=== PATIENT | female | born 1960 | race Caucasian/White ===

== ENCOUNTER 2018-06-26 15:38 | Emergency (ER) | payer SELFPAY ==
[2018-06-26 17:37] LABS: ABS Basophils 0 10^3/ul (0-0.2); ABS Eosinophils 0.1 10^3/ul (0-0.6); ABS Lymphocytes 1.8 10^3/ul (1.0-4.8); ABS Monocytes 0.4 10^3/ul (0-0.8); ABS Neutrophils 3.5 10^3/ul (1.5-7.7); ABS Nucleated RBC 0 10^3/ul; Eosinophil % 1.5 %; Hematocrit 46 % (35-47); Hemoglobin 15.5 g/dl (12.0-16.0); Lymphocyte % 31.1 %; Mean Corpuscular HGB Conc 34 g/dl (31-36); Mean Corpuscular Hemoglobin 31 pg (27-31); Mean Corpuscular Volume 92 fL (80-97); Mean Platelet Volume 8.8 fL (7.4-10.4); Nucleated Red Blood Cells % 0.1; Platelet Count 232 10^3/ul (150-450); Red Blood Count 4.95 10^6/ul (4.00-5.40); Red Cell Distribution Width 13 % (10.5-15); White Blood Count 5.9 10^3/ul (3.5-10.8)
[2018-06-26 17:54] LABS: INR 0.86 (0.77-1.02)
[2018-06-26 17:56] LABS: EGFR Non-African American 78.7 (>60)
[2018-06-26 18:06] VITALS: BP 136/83
== END 2018-06-26 18:44 | disposition left against medical advice (07) ==
LOC: ED 15:38
DX: R07.9 Chest pain, unspecified (principal); Z53.21 Procedure and treatment not carried out due to patient leaving prior to being seen by health care provider
CPT/HCPCS: 36415; 80053; 83690; 84443; 84484; 85025; 85610; 86140; 93005; 99281

== ENCOUNTER 2019-10-23 13:25 | Emergency (ER) | payer MEDICAID, OTHER ==
[2019-10-23] MEDS ORDERED: methylPREDNISolone 125 MG* 2 ML VIAL IM ONE (13:38)
[2019-10-23] MEDS ORDERED: Lidocaine 2% VISCOUS* 15 ML UDC PO ONE (13:40)
[2019-10-23] MEDS ORDERED: Ibuprofen ADULT LIQ* 600 MG/30 ML UDC PO ONE (13:40)
--- NOTE | 2019-10-23 13:45 | ED ---
Throat Pain/Nasal Congestion - HPI Summary HPI Summary: 51-year-old female PUI for COVID-19 presents to the emergency department today complaining of 2 days of 10 out of 10 for throat with no associated fever. Patient denies trismus, drooling, trouble breathing but does state it is difficult to maintain by mouth intake due to pain. Patient was seen at [facility] yesterday and tested negative for streptococcal pharyngitis, influenza and has COVID-19 testing pending. Patient states she's been taking ibuprofen for pain. Patient is otherwise well and denies fever, chest pain, abdominal pain, pending urination, nausea vomiting diarrhea, cough, nasal congestion. - History of Current Complaint Time Seen by Provider: 10/23/19 13:27 Hx Obtained From: Patient Onset/Duration: Gradual Onset Severity: Severe Associated Signs And Symptoms: Positive: Dysphagia. Negative: Drooling, Wheezing, Hoarseness Cough: None - Allergies/Home Medications Allergies/Adverse Reactions: Allergies Allergy/AdvReac Type Severity Reaction Status Date / Time azithromycin Allergy Hives Verified 06/26/18 15:53 [From Zithromax Z-Benjamin] Penicillins Allergy Hives Verified 06/26/18 15:53 Home Medications: Home Medications Amlodipine 2.5 mg TAB (NF) 2.5 mg PO DAILY 10/23/19 [History Confirmed 10/23/19] Aspirin EC TAB* [Ecotrin EC Low Dose 81 MG*] 81 mg PO DAILY 10/23/19 [History Confirmed 10/23/19] Atorvastatin* [Lipitor*] 10 mg PO DAILY 10/23/19 [History Confirmed 10/23/19] DULoxetine DR CAP* [Cymbalta CAP*] 30 mg PO DAILY 10/23/19 [History Confirmed ] DULoxetine DR CAP* [Cymbalta CAP*] 60 mg PO DAILY 10/23/19 [History Confirmed ] QUEtiapine TAB* [Seroquel 100 MG *] 200 mg PO BEDTIME 10/23/19 [History Confirmed 10/23/19] predniSONE 20 mg TAB [Deltasone 20 MG TAB*] 40 mg PO DAILY #8 tab 10/23/19 [Rx] Review of Systems Constitutional: Negative Eyes: Negative Positive: Sore Throat. Negative: Dental Pain, Nasal Discharge Cardiovascular: Negative Respiratory: Negative Gastrointestinal: Negative Genitourinary: Negative Musculoskeletal: Negative Skin: Negative Neurological/Mental Status: Negative Psychological: Normal All Other Systems Reviewed And Are Negative: Yes Physical Exam - Summary Physical Exam Summary: Patient is in no acute distress with no stridor, wheezing, trismus. There is significant erythema with tonsillar exudate/ swelling in the posterior pharynx. Uvula midline. No evidence of peritonsillar abscess. No muffled voice. Patient's airway is not compromised. Triage Information Reviewed: Yes Vital Signs Reviewed: Yes Appearance: Positive: Well-Appearing, No Pain Distress, Well-Nourished Skin: Positive: Warm, Skin Color Reflects Adequate Perfusion Eyes: Positive: EOMI, RYLEE ENT: Positive: Hearing grossly normal Respiratory/Lung Sounds: Positive: Clear to Auscultation, Breath Sounds Present Cardiovascular: Positive: RRR, S1, S2 Abdomen Description: Positive: Nontender, Soft Bowel Sounds: Positive: Present Musculoskeletal: Positive: Strength/ROM Intact Neurological: Positive: Sensory/Motor Intact, Alert, Oriented to Person Place, Time, Normal Gait, Facial Symmetry, Speech Normal Psychiatric: Positive: Normal, Affect/Mood Appropriate AVPU Assessment: Alert Procedures - Sedation Patient Received Moderate/Deep Sedation with Procedure: No EENT Course/Dx - Course Course Of Treatment: Patient was evaluated in the emergency department today for sore throat. Patient is a PUI for COVID 19. Vitals noted and stable. Patient afebrile. Physical exam is consistent with acute pharyngitis. Airway was patent and there is no drooling, trismus, evidence of peritonsillar abscess. Streptococcal pharyngitis serology negative. Due to tonsillar edema patient was given steroids in the emergency Department as well as ibuprofen for pain. Patient was given prescription for prednisone to take 40 mg for 4 days for tonsillar swelling. Patient is to continue self quarantined until she is contacted by the health department with results of her Covid 19 screening. Patient discharged with outpatient follow-up. Patient was able to tolerate by mouth intake of fluids at the time of discharge. - Differential Diagnoses Differential Diagnoses: Cellulitis, Abundio's Angina, Pharyngitis, Tonsilitis, URI/Bronchitis - Diagnoses Provider Diagnoses: Acute pharyngitis Discharge ED - Sign-Out/Discharge Documenting (check all that apply): Patient Departure - Discharge Plan Condition: Stable Disposition: HOME Prescriptions: predniSONE 20 mg TAB [Deltasone 20 MG TAB*] 40 mg PO DAILY #8 tab Patient Education Materials: Pharyngitis (ED) Referrals: No Primary Care Phys,NOPCP [Medical Doctor] - 3 Days Additional Instructions: Please continue to take ibuprofen 600 mg every 6 hours as needed for pain and swelling. Please take 40 mg prednisone daily for 4 days. Please follow up with your primary care provider in 3-4 days for further evaluation and management of your symptoms. Please continue to quarantine yourself until the results of your COVID testing return. Please return to the emergency department immediately should you develop any new or worsening symptoms. - Billing Disposition and Condition Condition: STABLE Disposition: Home
[2019-10-23 14:22] LABS: Rapid Strep Molecular Negative (Negative)
--- OUTSIDE RECORDS SUMMARY | 2019-10-23 14:32 | XMS REPORT | Summary of Care ---
:1960 Author Organization [facility] Address [address] [place] [address] Care Team Providers Name Role Phone Jessica Dumas MD Primary Care Provider Reason for Visit Reason Comments Fever Sore Throat Encounter Details Date Type Department Care Team Description 10/22/2019 Office Visit [place] Shereen Benoit, [employer] [place] Fever, unspecified Practice [address] fever cause (Primary [address] [place] [address] Dx) [place] [address] [phone] Allergies Active Allergy Reactions Severity Noted Date Comments Penicillins Hives 07/31/2018 Azithromycin Dihydrate Hives 07/31/2018 documented as of this encounter (statuses as of 10/22/2019) Medications Medication Sig Dispensed Refills Start Date End Date Status Multiple Take by mouth. 0 Active Vitamins-Minerals (ICAPS AREDS 2 PO) duloxetine (CYMBALTA) 30 Take 30 mg by 0 Active MG Oral CAPSULE ENTERIC mouth DAILY. COATED PARTICLES duloxetine (CYMBALTA) 60 Take 60 mg by 0 Active MG Oral CAPSULE ENTERIC mouth DAILY. COATED PARTICLES quetiapine (SEROQUEL) Take 200 mg by 0 Active 100 MG Oral Tab mouth EVERY BEDTIME. amLodipine (NORVASC) 2.5 Take 1 Tab by 30 Tab 5 09/19/2019 Active MG Oral TabIndications: mouth DAILY. Raynaud's phenomenon without gangrene aspirin (ECOTRIN) 81 MG Take 1 Tab by 30 Tab 5 09/19/2019 Active Oral Tab EC mouth DAILY. atorvastatin (LIPITOR) Take 1 Tab by 30 Tab 5 09/19/2019 Active 10 MG Oral Tab mouth DAILY. documented as of this encounter (statuses as of 10/22/2019) Active Problems Problem Noted Date Acute pharyngitis 09/10/2019 Benign paroxysmal positional vertigo 09/10/2019 Cough 09/10/2019 Disorder of eye 09/10/2019 Essential hypertension 09/10/2019 Other chest pain 09/10/2019 Low back pain 09/10/2019 Meralgia paresthetica 09/10/2019 Obesity 09/10/2019 Old myocardial infarction 09/10/2019 Palpitations 09/10/2019 Postnasal drip 09/10/2019 Premenopausal menorrhagia 09/10/2019 Shortness of breath 09/10/2019 Abnormal stress echo 09/29/2018 S/P gastric bypass Overview: age 54, lost 90lb Antiphospholipid syndrome documented as of this encounter (statuses as of 10/22/2019) Resolved Problems Problem Noted Date Resolved Date Acute upper respiratory infection 09/10/2019 09/10/2019 Contact dermatitis and other eczema 09/10/2019 09/10/2019 Encounter for routine gynecological examination 09/10/2019 09/10/2019 Routine general medical examination at a [facility] 09/10/2019 09/10/2019 facility Need for prophylactic vaccination and inoculation against 06/25/20132019 influenza documented as of this encounter (statuses as of 10/22/2019) Immunizations Name Administration Dates Next Due Influenza (IM) Preservative Free 05/18/2018 Influenza Vaccine Split 06/25/2013 Influenza Virus Vaccine Pres Free 6-35 Months 07/13/2011 documented as of this encounter Social History Tobacco Use Types Packs/Day Years Used Date Never Smoker Smokeless Tobacco: Never Used Alcohol Use Drinks/Week oz/Week Comments Yes occasionally Alcohol Habits Answer Date Recorded How often do you have a drink containing alcohol? Monthly or less 07/31/2018 How many drinks containing alcohol do you have on a 1 or 2 07/31/2018 typical day when you are drinking? How often do you have six or more drinks on one Not asked occasion? Physical Activity Answer Date Recorded On average, how many days per week do you engage in moderate 0 days 2018 to strenuous exercise (like walking fast, running, jogging, dancing, swimming, biking, or other activities that cause a light or heavy sweat)? On average, how many minutes do you engage in exercise at Not asked this level? Stress Answer Date Recorded Do you feel stress - tense, restless, nervous, or anxious, or Very much 07/31 unable to sleep at night because your mind is troubled all the time - these days? Sex Assigned at Date Recorded Not on file documented as of this encounter Last Filed Vital Signs Vital Sign Reading Time Taken Comments Blood Pressure 122/78 10/22/2019 1:58 PM EDT Pulse 81 10/22/2019 1:58 PM EDT Temperature 38.1 10/22/2019 1:58 PM C (100.6 EDT F) Respiratory Rate - - Oxygen Saturation 98% 10/22/2019 1:58 PM EDT Inhaled Oxygen Concentration - - Weight - - Height - - Body Mass Index - - documented in this encounter Progress Notes Shereen Holman FNP-C - 10/22/2019 1:20 PM EDT PATIENT: Lea Hunt : 1960 DATE OF SERVICE: 10/22/2019 CHIEF COMPLAINT: Chief Complaint Patient presents with ? Fever ? Sore Throat Subjective HISTORY OF PRESENT ILLNESS: Lea Hunt is a 59-y.o. female. Started feeling sick yesterday fever and chills sore throat Slight nasal congestion and cough feels pain in knees and ankles Muscle pain in legs Headaches Hasn't taken any medication for symptoms Past Medical History: Diagnosis Date ? Antiphospholipid syndrome (HCC) ? Atrophy, cortical (HCC) ? Breath shortness ? Clotting disorder (HCC) ? Essential (primary) hypertension ? GERD (gastroesophageal reflux disease) ? Heart attack (HCC) age 41, had cath, no stents. tx for HTN, felt due to a clot ? History of breast surgery right breast benign biopsy ? Pneumonia ? Postmenopausal ? S/P gastric bypass age 54, lost 90lb ? Viral hepatitis years ago, hepatits C tx with ribaviron and intererone Family History Problem Relation Age of Onset ? Heart Mother ? Dementia Mother ? Heart Father ? GI Father from C Difficile ? Alcohol/Drug Daughter heroin ? Heart Sister CHF ? Heart Brother amalyoid heart, transplant ? Heart Sister afib ? Heart Brother chf ? No Known Problems Sister ? Alcohol/Drug Daughter heroin ? Diabetes No family history ? Cancer No family history Current Outpatient Medications Medication Sig ? amLodipine (NORVASC) 2.5 MG Oral Tab Take 1 Tab by mouth DAILY. ? aspirin (ECOTRIN) 81 MG Oral Tab EC Take 1 Tab by mouth DAILY. ? atorvastatin (LIPITOR) 10 MG Oral Tab Take 1 Tab by mouth DAILY. ? duloxetine (CYMBALTA) 30 MG Oral CAPSULE ENTERIC COATED PARTICLES Take 30 mg by mouth DAILY. ? duloxetine (CYMBALTA) 60 MG Oral CAPSULE ENTERIC COATED PARTICLES Take 60 mg by mouth DAILY. ? Multiple Vitamins-Minerals (ICAPS AREDS 2 PO) Take by mouth. ? quetiapine (SEROQUEL) 100 MG Oral Tab Take 200 mg by mouth EVERY BEDTIME. No current facility-administered medications for this visit. Allergies Allergen Reactions ? Penicillins Hives ? Z-Benjamin [Azithromycin Dihydrate] Hives Social History Socioeconomic History ? Marital status: Spouse name: Not on file ? Number of children: 2 ? Years of education: Not on file ? Highest education level: Not on file Occupational History ? Occupation: unemployed Social Needs ? Financial resource strain: Not on file ? Food insecurity Worry: Not on file Inability: Not on file ? Transportation needs Medical: Not on file Non-medical: Not on file Tobacco Use ? Smoking status: Never Smoker ? Smokeless tobacco: Never Used Substance and Sexual Activity ? Alcohol use: Yes Frequency: Monthly or less Drinks per session: 1 or 2 Comment: occasionally ? Drug use: Never ? Sexual activity: Not Currently Lifestyle ? Physical activity Days per week: 0 days Minutes per session: Not on file ? Stress: Very much Relationships ? Social connections Talks on phone: Not on file Gets together: Not on file Attends latter day service: Not on file Active member of club or organization: Not on file Attends meetings of clubs or organizations: Not on file Relationship status: Not on file ? Intimate partner violence Fear of current or ex partner: Not on file Emotionally abused: Not on file Physically abused: Not on file Forced sexual activity: Not on file Other Topics Concern ? Not on file Social History Narrative Moved here from [place] Lives alone No pets unemployed REVIEW OF SYSTEMS: Review of Systems Constitutional: Positive for chills, fever and malaise/fatigue. HENT: Positive for sore throat. Negative for congestion. Eyes: Negative for pain. Respiratory: Positive for cough and shortness of breath. Cardiovascular: Negative for chest pain and palpitations. Gastrointestinal: Negative for abdominal pain, diarrhea, nausea and vomiting. Genitourinary: Negative for dysuria. Musculoskeletal: Positive for joint pain and myalgias. Skin: Negative for rash. Neurological: Positive for headaches. Psychiatric/Behavioral: Negative for depression. Objective PHYSICAL EXAM: VITALS: BP 122/78 | Pulse 81 | Temp 100.6 F (38.1 C) | SpO2 98% There is no height or weight on file to calculate BMI. Physical Exam Constitutional: Appearance: She is ill-appearing. HENT: Head: Normocephalic. Right Ear: Tympanic membrane normal. Left Ear: Tympanic membrane normal. Nose: Nose normal. Mouth/Throat: Mouth: Mucous membranes are moist. Pharynx: Posterior oropharyngeal erythema present. Eyes: Conjunctiva/sclera: Conjunctivae normal. Pupils: Pupils are equal, round, and reactive to light. Neck: Musculoskeletal: Neck supple. Cardiovascular: Rate and Rhythm: Normal rate. Heart sounds: Normal heart sounds. No murmur. Pulmonary: Effort: Pulmonary effort is normal. Breath sounds: Normal breath sounds. Abdominal: General: Bowel sounds are normal. There is no distension. Palpations: There is no mass. Tenderness: There is no abdominal tenderness. Musculoskeletal: General: No swelling. Lymphadenopathy: Cervical: No cervical adenopathy. Skin: General: Skin is warm. Capillary Refill: Capillary refill takes less than 2 seconds. Findings: No rash. Neurological: Mental Status: She is alert and oriented to person, place, and time. Gait: Gait normal. Psychiatric: Mood and Affect: Mood normal. ASSESSMENT / IMPRESSION: ICD-9-CM ICD-10-CM 1. Fever, unspecified fever cause 780.60 R50.9 RAPID INFLUENZA A B (AMB POCT) STREP A ANTIGEN (AMB POCT) THROAT STREP SCREEN CULTURE SARS COV-2 RNA, QUAL RT-PCR Plan You have been tested for influenza, strep and coronavirus 19 You are now under quarantine -you not be in contact with other people and must remain at home until you get further information from the health department Your testing results will be complete 3 days and you will be notified of results You most likely have a viral illness Treatment is supportive care Increase fluids and rest Take acetaminophen or ibuprofen as needed for pain or fever If your symptoms worsen and you feel shortness of breath you must be seen at the emergency department -get someone to drive you or call 911 Author: KELLY Ragsdale 10/22/2019 14:19 documented in this encounter Plan of Treatment Date Type Specialty Care Team Description 12/10/2019 Lab Internal Medicine 03/10/2020 Office Visit [facility] Jessica Dumas MD [address] [place] [address] [phone] Name Type Priority Associated Diagnoses Order Schedule RAPID INFLUENZA A B POCT Routine Fever, unspecified fever Ordered: 2019 (AMB POCT) cause STREP A ANTIGEN (AMB POCT Routine Fever, unspecified fever Ordered: 2019 POCT) cause THROAT STREP SCREEN Lab Routine Fever, unspecified fever 1 Occurrences starting CULTURE cause 10/22/2019 until 04/19/2020 SARS COV-2 RNA, QUAL Lab Routine Fever, unspecified fever Expected: 2019 RT-PCR cause (Approximate), Expires: 10/21/2020 Health Maintenance Due Date Last Done Comments CT Colonography 1960 Cologuard 1960 Colonoscopy 1960 Colorectal Cancer Screening 1960 FIT/FOBT 1960 Sigmoidoscopy 1960 PNEUMOCOCCAL 0-64 YRS (1 of 10/15/1967 1 - PPSV23) DTaP/Tdap/Td Vaccines (1 - 1972 Tdap) ZOSTER IMMUNIZATION SERIES 10/15/2011 (1 of 2) DEPRESSION SCREENING 01/11/2020 01/10/2019 DIABETES SCREENING 01/11/2020 01/10/2019, 07/31/2018 MAMMOGRAM (SCREENING) 01/25/2020 01/24/2019, 06/09/2017, 06/07/2017, Additional history exists INFLUENZA VACCINE (#1) 2020 05/18/2018, 06/25/2013 Postponed from 03/25/2019 (Patient refused) LIPID DISORDER SCREENING 09/19/2020 09/19/2019, 08/31/2018, 07/31/2018 HEPATITIS A IMMUNIZATION Aged Out No longer eligible SERIES based on patient's age to complete this topic HPV IMMUNIZATION SERIES Aged Out No longer eligible based on patient's age to complete this topic MENINGOCOCCAL VACCINE IMM Aged Out No longer eligible based on patient's age to complete this topic documented as of this encounter Goals Goal Patient Goal Associated Recent Patient-Stated? Author Type Problems Progress Blood Pressure Blood 122/78 No Alesia, < 140/90 Pressure (10/22/2019 Jessica Guerra, 1:58 PM EDT) Note: This is an individualized treatment (blood pressure) goal for Lea Hunt: Displayed above (on the left) is your goal for blood pressure control. Your most recent blood pressure is also shown above, on the right. You should try to achieve blood pressures that are lower than your goal listed above (on the left). Depression screen (PHQ-9) total score < Depression No Jessica Dumas MD 5 Note: This is an individualized treatment (depression) goal for Lea Hunt: Displayed above is your goal for a depression screening (PHQ-9) score that would indicate good control of your depression. Keep a regular sleep schedule Lifestyle No Jessica Dumas MD Note: This is an individualized lifestyle goal for Lea Hunt: Please maintain a regular sleep schedule. This may help with some symptoms of depression. Take all prescribed medications as Self-management No Jessica Dumas MD directed Note: This is an individualized self-management goal for Lea Hunt: Please take all prescribed medications as directed. 1. Do not skip doses. If you cannot afford your medications, talk with your doctor. 2. Use a pill reminder system such as a pill box if needed. Your pharmacist can help you with this. 3. Contact your Pharmacy 5 days before your medication runs out. If you cannot take your medications for any reasons, talk with your doctor. 4. Please bring all of your medication bottles and inhalers (or a list of all your medications/inhalers) with you to every visit. Potential barriers to meeting all of your care plan goals will continue to be addressed on an ongoing basis. documented as of this encounter Results Not on filedocumented in this encounter Visit Diagnoses Diagnosis Fever, unspecified fever cause documented in this encounter documented as of this encounter"
--- OUTSIDE RECORDS SUMMARY | 2019-10-23 14:32 | XMS REPORT ---
:1960 Author Organization [facility] Care Team Providers Name Role Phone DEREK LYNN Primary Care Physician Unavailable Allergies, Adverse Reactions, Alerts Allergy Code CodeSystem Reaction Severity Criticality Status Start Substance Date Moderate Medications Medication Medication Medication Start Stop Route Dose Status Fill Code CodeSystem Date Date Instructions sertraline 451273 RxNorm 2019- oral 100 mg 1 completed 1 tablet 11-22-12 tablet once a day once a for 30 day(s) day sertraline 714221 RxNorm 2019- oral 50 mg completed for 30 -12 tablet day(s) lorazepam RxNorm 2019- oral 1 mg 1 completed 1 tablet at 11-03 tablet bedtime for at 30 day(s) bedtime mirtazapine 672035 RxNorm oral 15 mg active 6-12 tablet sertraline 058558 RxNorm 2019- oral 50 mg 1 completed 1 tablet 11-03 tablet once a day once a for 30 day(s) day lorazepam RxNorm 2019- oral 1 mg completed for 30 -12 tablet day(s) lorazepam RxNorm 2019- oral 1 mg 1 completed 1 tablet 11-22 tablet twice a day twice a as needed for day 30 day(s) Problems Problem Name Code CodeSystem Alternate Alternate Start End Status Narrative Code CodeSystem Date Date Depressive 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 SNOMED-CT Active episode, 3-22 unspecified Relevant diagnostic tests/laboratory data Narrative No Information Procedures Procedure Code CodeSystem Target Date of Status Service Device Device Device Name Site Procedure Delivery Code Name UID Location Psychotherap [id number] SNOMED-CT () 2018-11-20 complete Mental y, 45 04 d Health- [facility] with [address], [id number] SNOMED-CT () 2019-03-08 complete Mental d Health- [place], [id number] SNOMED-CT () 2019-01-01 complete Mental d Health- [place], [id number] SNOMED-CT () 2018-11-08 complete Mental d Health- [facility], [id number] [id number] Office [place] [id number] SNOMED-CT () 2019-03-05 complete Mental other 6 d Health- outpatient [place] visit for [address], established [id number] patient, [id number] which requires at least 2 of these 3 lew components: A problem focused history; A problem focused examination; [facility] [place] medical decision making. [place] Office [place] [id number] SNOMED-CT () 2019-07-19 complete Mental other 7 d Health- outpatient [facility] visit for [address], established [id number] patient, [id number] which requires at least 2 of these 3 lew components: An expanded problem focused history; An expanded problem focused examination; Medical decision making of low Psychotherap [id number] SNOMED-CT () 2018-12-07 complete Mental y, 45 04 d Health- minutes with [place] patient [address], [id number] Psychotherap [id number] SNOMED-CT () 2019-01-17 complete Mental y, 45 04 d Health- minutes with [place] patient [address], [id number] [phone] Office or [id number] SNOMED-CT () 2018-11-22 complete Mental other 7 d Health- outpatient [place] visit for [address], established [id number] patient, [id number] which requires at least 2 of these 3 lew components: An expanded problem focused history; An expanded problem focused examination; Medical decision making of low Psychotherap [id number] SNOMED-CT () 2019-07-30 complete Mental y, 45 04 d Health- minutes with [place] patient [address], [id number] [id number] Psychotherap [id number] SNOMED-CT () 2019-01-08 complete Mental y, 45 04 d Health- minutes with [place] patient [address], [id number] [phone] Psychotherap [id number] SNOMED-CT () 2019-02-23 complete Mental y, 45 04 d Health- minutes with [facility] patient [address], [id number] [phone] Office or [id number] SNOMED-CT () 2019-01-03 complete Mental other 7 d Health- outpatient [place] visit for [address], established [id number] patient, [id number] which requires at least 2 of these 3 lew components: An expanded problem focused history; An expanded problem focused examination; Medical decision making of [facility] Psychotherap [id number] SNOMED-CT () 2019-02-02 complete Mental y, 45 04 d Health- minutes with [place] patient [address], [id number] [phone] SNOMED-CT () 2019-06-26 complete Mental d Health- [facility] [address], [id number] [id number] Psychotherap [id number] SNOMED-CT () 2019-05-28 complete Mental y, 45 04 d Health- minutes with [facility] patient [address], [id number] [id number] Office or [id number] SNOMED-CT () 2019-09-03 complete Mental other 7 d Health- outpatient [facility] visit for [address], established [id number] patient, [id number] which requires at least 2 of these 3 lew components: An expanded problem focused history; An expanded problem focused examination; Medical decision making of [facility] Office or [id number] SNOMED-CT () 2019-08-07 complete Mental other 7 d Health- outpatient [facility] visit for [address], established [id number] patient, [phone] which requires at least 2 of these 3 lew components: An expanded problem focused history; An expanded problem focused examination; Medical decision making of low SNOMED-CT () 2019-08-07 complete Mental d Health- [address], [id number] [phone] Psychotherap [id number] SNOMED-CT () 2019-04-16 complete Mental y, 45 04 d Health- minutes with [facility] patient [address], [id number] [phone] Encounters/Encounter Diagnoses Encounter Name Encounter Diagnosis Diagnosis Diagnosis Date of Service Code Code Name CodeSystem Diagnosis Delivery Location Established [id number] Depressive SNOMED-CT 2019-09-03 Behavioral patient 15-29 episode, Health minutes unspecified Clinic [address] [place] [address], [id number] Vital Signs No Information Social History Element Description Description Start End Code CodeSystem AdditionalInfo Date Date SexAssignedAtBirth Female 1961-1 F AdministrativeGender 10-14 Hospital Discharge Instructions Reason For Referral Medical Equipment FDA Assessments
--- OUTSIDE RECORDS SUMMARY | 2019-10-23 14:32 | XMS REPORT | Summary of Care ---
:1960 Author Organization [facility] Address [address] [facility] [place] [address] Care Team Providers Name Role Phone Jessica Dumas MD Primary Care Provider Reason for Visit Reason Comments Anxiety f/u Labs Only cardiac cath: last done in september 2018 Medication Check started on new medication from Psychiatrist (duloxatine and quetrapine) Sleep Problem not sleeping well eevn with meds Encounter Details Date Type Department Care Team Description 09/10/2019 Office Visit [facility] [place], Mixed hyperlipidemia ( Primary Dx); Practice Jessica Guerra MD KG (generalized anxiety disorder); [address] [facility] Antiphospholipid syndrome (HCC); [place] [address] [place] [address] S/P gastric bypass; [phone] Screen for colon cancer; Raynaud's phenomenon without gangrene Allergies Active Allergy Reactions Severity Noted Date Comments Penicillins Hives 07/31/2018 Azithromycin Dihydrate Hives 07/31/2018 documented as of this encounter (statuses as of 09/10/2019) Medications Medication Sig Dispensed Refills Start Date End Date Status aspirin (ECOTRIN) 81 MG Take 1 Tab by 30 Tab 0 08/02/2018 Active Oral Tab EC mouth DAILY. Multiple Take by mouth. 0 Active Vitamins-Minerals (ICAPS AREDS 2 PO) atorvastatin (LIPITOR) TAKE 1 TABLET BY 30 Tab 5 08/01/2019 Active 10 MG Oral Tab MOUTH EVERY DAY duloxetine (CYMBALTA) Take 30 mg by 0 Active 30 MG Oral CAPSULE mouth DAILY. ENTERIC COATED PARTICLES duloxetine (CYMBALTA) Take 60 mg by 0 Active 60 MG Oral CAPSULE mouth DAILY. ENTERIC COATED PARTICLES quetiapine (SEROQUEL) Take 200 mg by 0 Active 100 MG Oral Tab mouth EVERY BEDTIME. amLodipine (NORVASC) Take 1 Tab by 30 Tab 5 09/10/2019 Active 2.5 MG Oral mouth DAILY. TabIndications: Raynaud's phenomenon without gangrene documented as of this encounter (statuses as of 09/10/2019) Active Problems Problem Noted Date Acute pharyngitis [...] as of this encounter (statuses as of 09/10/2019) Resolved Problems Problem Noted Date Resolved Date Acute upper respiratory infection 09/10/2019 09/10/2019 Contact dermatitis and other eczema 09/10/2019 09/10/2019 Encounter for routine gynecological examination 09/10/2019 09/10/2019 Routine general medical examination at a [facility] 09/10/2019 09/10/2019 facility Need for prophylactic vaccination and inoculation against 06/25/20132019 influenza documented as of this encounter (statuses as of 09/10/2019) Immunizations Name Administration Dates Next Due Influenza [...] Sign Reading Time Taken Comments Blood Pressure 132/70 09/10/2019 7:00 AM EST Pulse 65 09/10/2019 7:00 AM EST Temperature - - Respiratory Rate - - Oxygen Saturation 98% 09/10/2019 7:00 AM EST Inhaled Oxygen Concentration - - Weight 78.9 kg (174 lb) 09/10/2019 7:00 AM EST Height 170.2 cm (5' 7") 09/10/2019 7:00 AM EST Body Mass Index 27.25 09/10/2019 7:00 AM EST documented in this encounter Patient Instructions Patient InstructionsJessica Dumas MD - 09/10/2019 7:00 AM ESTYou likely have Raynaud's of your feet. Try amlodipine 2.5 mg at bedtime to help dilate the capillaries. If dizzy or BP too low, stop it and let me know. I ordered a [facility] colon cancer screening test for you. Patient Education Raynaud Disease The Basics Written by the doctors and editors at [facility] What is Raynaud disease?Raynaud disease is a condition that can cause people's fingers and toes to turn white or purple-blue. Raynaud disease does not always cause symptoms, but peoplecan get an "attack" when it is cold out, when they feel stressed, or when they are startled. Raynauddisease is more common in women than men. Normally, blood vessels in parts of the body become narrow under certain conditions, such as when itis very cold out. When people have Raynaud disease, the blood vessels become much more narrow than usual during these times. This causes symptoms. Most people with Raynaud disease have normal blood vessels. But some people with Raynaud disease also have another disease that affects their blood vessels. What are the symptoms of Raynaud disease?Most often, Raynaud disease affects the fingers. During an attack, people's fingers suddenly become cold and turn white or purple-blue (picture1). Attacks usually begin in the index, middle, or ring fingers and then spread to the fingers in both hands. The thumb is not usually affected. During an attack, a person's hand can feel numb, clumsy,or like it has "pins and needles." It does not need to be very cold out for people to have an attack. Attacks can happen when people gofrom a warm area to a cooler area, such as walking into an air-conditioned building. Raynaud disease can also affect other parts of the body. The toes, ears, nose, face, knees, and nipples can become white or blue when they are cold. Once a person warms up or is no longer stressed, the symptoms go away and the skin becomes pink or red. This usually takes 15 to 20 minutes. People who have Raynaud disease plus another disease affecting their blood vessels can have more severe symptoms. Their attacks can last longer, and they can develop pain or open sores on their fingersand toes. Is there a test for Raynaud disease?No. But your doctor or nurse should be able to tell if you have it by talking with you and doing an exam. Your doctor or nurse might also order blood tests. Is there anything I can do on my own to prevent attacks of Raynaud disease?Yes. To help prevent attacks, you can: Try not to let your body get cold too quickly and or change temperatures too quickly. Keep yourwhole body warm and avoid cold breezes or cold places. You can dress warmly by wearing layers of clothes, hats, and mittens or gloves. Don't smoke ? Smoking can make your symptoms worse. Avoid medicines that cause blood vessels to become narrow, such as cold medicines or diet pills Try to relax and reduce the stress in your life If you have an attack, you can try to end it quickly by warming up your hands. Place your hands in warm water or in a warm place, such as in your armpits. Should I see a doctor or nurse?Yes. If you continue to have attacks after trying the things listed above, talk with your doctor or nurse. Your doctor might prescribe a medicine to helpreduce your symptoms. Some people take medicine for Raynaud disease only during the cold winter months. You should also see your doctor or nurse if you have an attack that does not get better. If your symptoms do not go away, your doctor or nurse might send you to the hospital for further treatment. All topics are updated as new evidence becomes available and our peer review process is complete. This topic retrieved from [employer] on: May 29, 2019. Topic 04312 Version 9.0 Release: 27.4.5 - C27.318 ?2019?[employer] and/or its affiliates.?All rights reserved. picture 1: Raynaud phenomenon During a Raynaud attack, the fingers (or toes) become suddenly pale or white ( panel A) as the blood vessels constrict. They might then turn a purple or blue color (panel B), which means there is less blood than normal flowing to the fingers. The thumb is often not affected. Graphic 301258 Version 1.0 Consumer Information Use and Disclaimer This information is not specific medical advice and does not replace information you receive from your health care provider. This is only a brief summary of general information. It does NOT include allinformation about conditions, illnesses, injuries, tests, procedures, treatments, therapies, discharge instructions or life-style choices that may apply to you. You must talk with your health care provider for complete information about your health and treatment options. This information should not beused to decide whether or not to accept your health care provider's advice, instructions or recommendations. Only your health care provider has the knowledge and training to provide advice that is right for you.The use of [employer] content is governed by the [employer] Terms of Use. 2019 [employer] All rights reserved. Copyright ?2019?[employer] and/or its affiliates.?All rights reserved. documented in this encounter Progress Notes Jessica Dumas MD - 09/10/2019 7:00 AM EST Nursing Notes: Man Spence LPN 09/10/2019 7:01 AM Signed Chief Complaint Patient presents with ? Anxiety f/u ? Labs Only cardiac cath: last done in september 2018 ? Medication Check started on new medication from Psychiatrist (duloxatine and quetrapine) ? Sleep Problem not sleeping well eevn with meds Man Spence LPN Psychiatry: [facility], Dr Renny Sánchez, every 2 week visits Chief Complaint: Lea Hunt is a 58-y.o. female who presents for follow up. Last seen in February. She has anxiety History of Present Illness/ROS: Patient presents for follow up of hx chest pain and anxiety. She stopped atorvastatin thinking it was her prior anxiety med, off it 2 months. She resumed it recently upon realizing her mistake. She is having a lot of anxiety and Dr Lwason is adjusting her medications. She still has trouble sleeping, gets about 4 hours a night. She works at [employer], and it is stressful. She says there is a meth problem there. She is working there because that is where her daughter was treated. New concern: Toes are cold and turn blue. Has to take a warm bath to warm them up and sleep. Wearshunting socks. KG: She is seeing Dr Lawson. She is adjusting her medications. Was on Mirtazapine in the past. She is trying meditation to sleep. Her anxiety and depression are still a problem. Counseling is every 2 weeks. Princess She still has anxiety attacks and they still cause her chest pain. Cath was normal last year. She reported in July 2018: Has been anxious, with chest tightness since daughter's in May ( heroin overdose). Goes to [facility] for therapy Fears medications so takes none She is overeating, does not want to go out. She has to get a job because she is running out of money, but has no ambition do so. I encouraged her to continue counseling and consider non-addicting medication. ? She also reported at her first visit with me that since her daughter's ( drug addiction for which patient moved here to help her with), she has had Chest pressure, like band across her upper chest, sometimes feels hard to breath. Worse with pressure on her chest such as wearing a bra. Not worse with activity Radiation: no radiation to her jaw arm or back. She also has right upper chest/clavicle pain which she has today. That is improved splinting the area/ pushing on her chest Stress Echocardiogram was positive so she was sent for cardiac cath. It was done in september 2018 and was normal. Review of Systems - General ROS: negative for - chills or fever Psychological ROS: positive anxiety and depression negative for - suicidal ideation Respiratory ROS: no cough, shortness of breath, or wheezing, hemoptysis Cardiovascular ROS: still has intermittent chest pain with her anxiety attacks, no dyspnea on exertion, or palpitations Gastrointestinal ROS: negative for - abdominal pain Health Maintenence reviewed. She declines a pap smear. She agrees to a cologuard rather than colonoscopy Lab Results Component Value Date CHOL 189 07/31/2018 TRIG 81 07/31/2018 HDL 62 07/31/2018 LDL 111 (H) 07/31/2018 LDLHDLRATIO 1.8 07/31/2018 CHOLHDLRATIO 3.0 07/31/2018 Office Visit on 01/10/2019 Component Date Value Ref Range Status ? Sodium 01/10/2019 139 134 - 145 mmol/L Final ? Potassium 01/10/2019 4.0 3.5 - 5.1 mmol/L Final ? Chloride 01/10/2019 102 98 - 107 mmol/L Final ? CO2 01/10/2019 31* 22 - 30 mmol/L Final ? Calcium 01/10/2019 9.2 8.3 - 10.1 mg/dl Final ? Albumin 01/10/2019 4.1 3.5 - 5.0 g/dl Final ? BUN 01/10/2019 16 7 - 17 mg/dl Final ? Creatinine 01/10/2019 0.7 0.7 - 1.2 mg/dl Final ? Glucose 01/10/2019 88 70 - 99 mg/dl Final ? Total Protein 01/10/2019 7.3 6.3 - 8.2 g/dl Final ? Total Bilirubin 01/10/2019 0.3 0.0 - 1.1 MG/DL Final ? AST 01/10/2019 39 15 - 46 U/L Final ? ALT 01/10/2019 32 9 - 52 U/L Final ? Alkaline Phosphatase 01/10/2019 77 40 - 150 U/L Final ? eGFR 01/10/2019 >60 See Interpretation Below ml/min/1.73ml Sq Final Estimated GFR Interpretation: Above 60ml/min/1.73m2 = Normal Renal Function 30-59 ml/min/1.73m2 = Stage 3 Chronic Kidney Disease 15-29 ml/min/1.73m2 = Stage 4 Chronic Kidney Disease Less than 15 ml/min/1.73m2 = Stage 5 Chronic Kidney Disease The GFR value is calculated using the Modification of Diet in Renal Disease ( MDRD) Study Equation which can be found at: https://www.kidney.org/content/egwd-tcwcq-mazldksn ? BUN/Creatinine Ratio 01/10/2019 23* 6 - 22 RATIO Final ? Anion Gap 01/10/2019 6 3 - 11 mmol/L Final ? A/G Ratio 01/10/2019 1.3 0.8 - 2.0 ratio Final ? TSH 01/10/2019 1.35 0.47 - 4.68 uIu/ml Final Cardiac Cath 09/30/18: SELECTIVE CORONARY ANGIOGRAPHY: Selective coronary angiography was done and revealed the followin. LEFT MAIN CORONARY ARTERY: The left main coronary artery is a large caliber vessel. It has a short segment prior to bifurcating into the left circumflex coronary artery and the left anterior descending artery. There is no significant stenosis in the left main coronary artery. 2. LEFT ANTERIOR DESCENDING CORONARY ARTERY: The left anterior descending coronary artery is a large caliber vessel. It gives off a fairly large first diagonal branch early on as it descends towards the apex. This first diagonal branch is just as large as the left anterior descending artery itself. There is no stenosis in the left anterior descending artery or any of its branches. 3. LEFT CIRCUMFLEX CORONARY ARTERY: The left circumflex coronary artery is a large caliber vessel. It gives off an obtuse marginal branch as it courses through the AV groove. There is no significant stenosis in the left circumflex coronary artery or any of its branches. 4. RIGHT CORONARY ARTERY: The right coronary artery is a large caliber dominant vessel. It gives off a posterolateral branch and a posterior descending artery, which are both medium caliber. There is no significant stenosis in the right coronary artery or any of its branches. SUMMARY: Normal coronaries. Past Medical History: Diagnosis Date ? Antiphospholipid [...] hepatits C tx with ribaviron and intererone Past Surgical History: Procedure Laterality Date ? BIOPSY, BREAST, PERCUT. NEEDLE 04/2017 clip placed, benign ? CATHETERIZATION HEART LEFT N/A 09/29/2018 Procedure: CATHETERIZATION HEART LEFT; Surgeon: Nav Rinaldi MD; Location: [facility] CCL ? CO BIOPSY/EXCISION, LYMPH NODE(S) right neck, age 21 benign ? CO LAP GASTRIC BYPASS/THELMA-EN-Y ? CO LIGATE FALLOPIAN TUBE ? UNLISTED PROCEDURE,MUSCULOSKELE right knee lateral release, age 26 Current Outpatient Medications: ? amLodipine (NORVASC) 2.5 MG Oral Tab, Take 1 Tab by mouth DAILY., Disp : 30 Tab, Rfl: 5 ? aspirin (ECOTRIN) 81 MG Oral Tab EC, Take 1 Tab by mouth DAILY., Disp: 30 Tab, Rfl: 0 ? atorvastatin (LIPITOR) 10 MG Oral Tab, TAKE 1 TABLET BY MOUTH EVERY DAY , Disp: 30 Tab, Rfl:5 ? duloxetine (CYMBALTA) 30 MG Oral CAPSULE ENTERIC COATED PARTICLES, Take 30 mg by mouth DAILY., Disp: , Rfl: ? duloxetine (CYMBALTA) 60 MG Oral CAPSULE ENTERIC COATED PARTICLES, Take 60 mg by mouth DAILY., Disp: , Rfl: ? Multiple Vitamins-Minerals (ICAPS AREDS 2 PO), Take by mouth., Disp: , Rfl: ? quetiapine (SEROQUEL) 100 MG Oral Tab, Take 200 mg by mouth EVERY BEDTIME., Disp: , Rfl: Allergies Allergen Reactions ? Penicillins Hives ? [...] file Gets together: Not on file Attends taoist service: Not on file Active member of [...] file Social History Narrative Moved here from [place] Lives alone No pets unemployed Family History Problem Relation Age of Onset ? Heart Mother ? Dementia Mother ? Heart Father ? GI Father from C Difficile ? Alcohol/Drug Daughter heroin ? Heart Sister CHF ? Heart Brother amalyoid heart, transplant ? Heart Sister afib ? Heart Brother chf ? No Known Problems Sister ? Alcohol/Drug Daughter heroin ? Diabetes No family history ? Cancer No family history PHYSICAL EXAMINATION: BP 132/70 (BP Location: Left arm, Patient Position: Sitting) | Pulse 65 | Ht 5 ' 7" (1.702 m) | Wt174 lb (78.9 kg) | SpO2 98% | BMI 27.25 kg/m Physical Examination: General appearance - alert, well appearing, and in no distress Mental status - alert, oriented to person, place, and time, depressed mood, behavior, speech, dress,motor activity, and thought processes Eyes - pupils equal, sclera anicteric Neck - supple, no cervical or supraclavicular adenopathy, carotids upstroke normal bilaterally, no bruits, thyroid exam: thyroid is normal in size without nodules or tenderness, no neck masses palpated. Chest/Lungs - clear to auscultation, no wheezes, rales or rhonchi, symmetric air entry, good aeration Heart - normal rate, regular rhythm, normal S1, S2, no murmurs, rubs, clicks or gallops Abdomen - soft, non tender on palpation, nondistended, no masses or hepatosplenomegaly, bowel soundsnormal, normal to percussion, no guarding or rebound. No costervertebral angle tenderness Neurological - alert, oriented, normal speech, no gross focal findings or movement disorder noted Extremities - dorsalis pedis pulses normal, no pedal edema, no clubbing or cyanosis, toes are cool but pink, normal capillary refill. ASSESSMENT/PLAN: ICD-9-CM ICD-10-CM 1. Mixed hyperlipidemia 272.2 E78.2 COMPREHENSIVE METABOLIC PANEL LIPID PROFILE 2. KG (generalized anxiety disorder) 300.02 F41.1 3. Antiphospholipid syndrome (HCC) 289.81 D68.61 4. S/P gastric bypass V45.86 Z98.84 5. Screen for colon cancer V76.51 Z12.11 COLOGUARD STOOL DNA TEST (EXTERNAL) 6. Raynaud's phenomenon without gangrene 443.0 I73.00 amLodipine (NORVASC) 2.5 MG Oral Tab Patient Instructions You likely have Raynaud's of your feet. Try amlodipine 2.5 mg at bedtime to help dilate the capillaries. If dizzy or BP too low, stop it and let me know. I ordered a [facility] colon cancer screening test for you. Patient Education Raynaud Disease The Basics Written by the doctors and editors at [facility] What is Raynaud disease?Raynaud disease is a condition that can cause people's fingers and toes to turn white or purple-blue. Raynaud disease does not always cause symptoms, but peoplecan get an "attack" when it is cold out, when they feel stressed, or when they are startled. Raynauddisease is more common in women than men. Normally, blood vessels in parts of the body become narrow under certain conditions, such as when itis very cold out. When people have Raynaud disease, the blood vessels become much more narrow than usual during these times. This causes symptoms. Most people with Raynaud disease have normal blood vessels. But some people with Raynaud disease also have another disease that affects their blood vessels. What are the symptoms of Raynaud disease?Most often, Raynaud disease affects the fingers. During an attack, people's fingers suddenly become cold and turn white or purple-blue (picture1). Attacks usually begin in the index, middle, or ring fingers and then spread to the fingers in both hands. The thumb is not usually affected. During an attack, a person's hand can feel numb, clumsy,or like it has "pins and needles." It does not need to be very cold out for people to have an attack. Attacks can happen when people gofrom a warm area to a cooler area, such as walking into an air-conditioned building. Raynaud disease can also affect other parts of the body. The toes, ears, nose, face, knees, and nipples can become white or blue when they are cold. Once a person warms up or is no longer stressed, the symptoms go away and the skin becomes pink or red. This usually takes 15 to 20 minutes. People who have Raynaud disease plus another disease affecting their blood vessels can have more severe symptoms. Their attacks can last longer, and they can develop pain or open sores on their fingersand toes. Is there a test for Raynaud disease?No. But your doctor or nurse should be able to tell if you have it by talking with you and doing an exam. Your doctor or nurse might also order blood tests. Is there anything I can do on my own to prevent attacks of Raynaud disease?Yes. To help prevent attacks, you can: Try not to let your body get cold too quickly and or change temperatures too quickly. Keep yourwhole body warm and avoid cold breezes or cold places. You can dress warmly by wearing layers of clothes, hats, and mittens or gloves. Don't smoke ? Smoking can make your symptoms worse. Avoid medicines that cause blood vessels to become narrow, such as cold medicines or diet pills Try to relax and reduce the stress in your life If you have an attack, you can try to end it quickly by warming up your hands. Place your hands in warm water or in a warm place, such as in your armpits. Should I see a doctor or nurse?Yes. If you continue to have attacks after trying the things listed above, talk with your doctor or nurse. Your doctor might prescribe a medicine to helpreduce your symptoms. Some people take medicine for Raynaud disease only during the cold winter months. You should also see your doctor or nurse if you have an attack that does not get better. If your symptoms do not go away, your doctor or nurse might send you to the hospital for further treatment. All topics are updated as new evidence becomes available and our peer review process is complete. This topic retrieved from [employer] on: May 29, 2019. Topic 13916 Version 9.0 Release: 27.4.5 - C27.318 ?2019?[employer] and/or its affiliates.?All rights reserved. picture 1: Raynaud phenomenon During a Raynaud attack, the fingers (or toes) become suddenly pale or white ( panel A) as the blood vessels constrict. They might then turn a purple or blue color (panel B), which means there is less blood than normal flowing to the fingers. The thumb is often not affected. Graphic 791028 Version 1.0 Consumer Information Use and Disclaimer This information is not specific medical advice and does not replace information you receive from your health care provider. This is only a brief summary of general information. It does NOT include allinformation about conditions, illnesses, injuries, tests, procedures, treatments, therapies, discharge instructions or life-style choices that may apply to you. You must talk with your health care provider for complete information about your health and treatment options. This information should not beused to decide whether or not to accept your health care provider's advice, instructions or recommendations. Only your health care provider has the knowledge and training to provide advice that is right for you.The use of [employer] content is governed by the [employer] Terms of Use. 2019 [employer] All rights reserved. Copyright ?2019?[employer] and/or its affiliates.?All rights reserved. Author: Jessica Dumas MD 09/10/2019 07:26 documented in this encounter Plan of Treatment Date Type Specialty Care Team Description 12/10/2019 Lab Internal Medicine 03/10/2020 Office Visit Family Practice Jessica Dumas MD [address] [place] [address] [phone] Name Type Priority Associated Diagnoses Order Schedule COLOGUARD STOOL DNA Lab - Exact Routine Screen for colon Ordered: TEST (EXTERNAL) Sciences cancer 09/10/2019 COMPREHENSIVE Lab Routine Mixed hyperlipidemia Expected: METABOLIC PANEL 12/09/2019 (Approximate), Expires: 09/10/2020 LIPID PROFILE Lab Routine Mixed hyperlipidemia Expected: 12/09/2019 (Approximate), Expires: 09/10/2020 Health Maintenance Due Date Last Done Comments PNEUMOCOCCAL 0-64 YRS (1 of 10/15/1967 1 - PPSV23) DTaP/Tdap/Td Vaccines (1 - 1972 Tdap) Colonoscopy 10/15/2011 ZOSTER IMMUNIZATION SERIES 10/15/2011 (1 of 2) DEPRESSION SCREENING 01/11/2020 01/10/2019 DIABETES SCREENING 01/11/2020 01/10/2019, 07/31/2018 MAMMOGRAM (SCREENING) 01/25/2020 01/24/2019, 06/09/2017, 06/07/2017, Additional history exists LIPID DISORDER SCREENING 08/01/2020 08/01/2019, 08/31/2018, 07/31/2018 INFLUENZA VACCINE (#1) 2020 Postponed from 03/25/2019 (Patient refused) HEPATITIS A IMMUNIZATION Aged Out No longer [...] Author Type Problems Progress Blood Pressure Blood 132/70 No Alesia, < 140/90 Pressure (09/10/2019 Jessica Guerra, 7:00 AM EST) Note: This is an individualized treatment (blood [...] filedocumented in this encounter Visit Diagnoses Diagnosis KG (generalized anxiety disorder) Generalized anxiety disorder Mixed hyperlipidemia Antiphospholipid syndrome (HCC) Primary hypercoagulable state S/P gastric bypass Bariatric surgery status Screen for colon cancer Special screening for malignant neoplasms, colon Raynaud's phenomenon without gangrene documented in this encounter documented as of this encounter
[2019-10-23 14:47] VITALS: BP 129/84
== END 2019-10-23 14:44 | disposition home or self-care (01) ==
LOC: ED 13:25
DX: R13.10 Dysphagia, unspecified (principal); Z88.0 Allergy status to penicillin; J02.9 Acute pharyngitis, unspecified; Z79.52 Long term (current) use of systemic steroids; Z20.828 Contact with and (suspected) exposure to other viral communicable diseases
CPT/HCPCS: 87651; 96372; 99282; A9270-GY; J2930